=== PATIENT | female | born 1985 | race Two or more races ===

== ENCOUNTER 2018-08-23 18:09 | Outpatient (CLI) | payer OTHER ==
[2018-08-23 19:11] VITALS: BP 133/85; PULSE 111; RESP 16; TEMP 97.5
[2018-08-23 19:36] LABS: Basophils % (A) 0 %; Eosinophils # (A) 0.2 k/uL (0-0.7); Eosinophils % (A) 3 %; HCT 31.8 % (34.0-46.0); HGB 10.6 gm/dL (11.4-16.0); Hypochromasia Moderate; Lymphocytes # (A) 1.8 k/uL (1.0-4.8); Lymphocytes % (A) 21 %; MCH 24.6 pg (25.0-35.0); MCHC 33.3 g/dL (31.0-37.0); MCV 73.8 fL (80.0-100.0); Mean Platelet Volume 7.5; Microcytosis Slight; Monocytes # (A) 0.4 k/uL (0-1.0); Monocytes % (A) 4 %; Neutrophils % (A) 70 %; Platelet Count 240 k/uL (150-450); Poikilocytosis Slight; WBC 8.5 k/uL (3.8-10.6)
[2018-08-23 19:40] LABS: ALT 29 U/L (9-52); AST 21 U/L (14-36); Blood Urea Nitrogen 13 mg/dL (7-17); LDH 387 U/L (313-618); Uric Acid 4.5 mg/dL (3.7-7.4)
[2018-08-23 19:52] LABS: Appearance,Urine Clear (Clear); Bilirubin,Urine Negative (Negative); Blood,Urine Negative (Negative); Color,Urine Colorless; Glucose,Urine (UA) Negative (Negative); Ketones,Urine Negative (Negative); Leukocyte Esterase,Urine Negative (Negative); Nitrite,Urine Negative (Negative); PH, Urine 5.5 (5.0-8.0); Protein,Urine Negative (Negative); Specific Gravity,Urine 1.004 (1.001-1.035); Urobilinogen,Urine <2.0 mg/dL (<2.0)
--- NOTE | 2018-08-24 07:32 | P.MSEPDOC ---
Presenting Problems - Arrival Data Date of Arrival on Unit: 08/23/18 Time of Arrival on Unit: 18:48 Mode of Transport: Ambulatory - Complaint OB-Reason for Admission/Chief Complaint: PIH Medical History - Information : 1 Para: 0 Term: 0 : 0 Abortions: Spontaneous or Elective: 0 Number of Living Children: 0 - Gestational Age Gestational Age by YOVANY (wks/days): 35 Weeks and 0 Days - History Complications: GDM Review of Systems - Review of Systems Constitutional: No problems Breast: No problems ENT: No problems Cardiovascular: No problems Respiratory: No problems Gastrointestinal: No problems Genitourinary: No problems Musculoskeletal: No problems Neurological: No problems Skin: No problems Vital Signs - Temperature Temperature: 97.5 F Temperature Source: Oral - Pulse Right Sitting Pulse Rate: 111 Pulse Assessment Method: Automatic Cuff - Respirations Respiratory Rate: 16 Oxygen Delivery Method: Room Air - Blood Pressure Right Arm Blood Pressure: 133/85 Blood Pressure Mean: 101 Blood Pressure Source: Automatic Cuff Medical Screen Scoring (Pre) - Cervical Exam Dilation: Exam Deferred Effacement: Exam Deferred Membranes: Intact - Uterine Contractions Frequency: N/A - Maternal Vital Signs Maternal Temperature: N/A Maternal Blood Pressure: N/A Signs of Preeclampsia: N/A Maternal Respirations: N/A - Pain Assessment Pain Behavior: None Exhibited - Maternal Trauma Maternal Trauma: N/A - Assessment Baseline FHR: 145 Heart Rate - NICHD Category: Category I (Normal) = 0 NST: Reactive Position: N/A Station: N/A - Total Score Total Score (Pre): 0 - Level of Risk Level of Risk: Low (0-5) Physician Notification (Pre) - Physician Notified Physician Notified Date: 08/23/18 Physician Notified Time: 18:48 Physician/Practitioner Notifed:: Hortensia Rodriguez Order Received: Yes ([facility] labs) Medical Screen Scoring (Post) - Cervical Exam Dilation: Exam Deferred Effacement: Exam Deferred Membranes: Intact - Uterine Contractions Frequency: > 5 minutes apart = 1 - Maternal Vital Signs Maternal Temperature: N/A - Pain Assessment Pain Scale Used: Numeric (1 - 10) Pain Intensity: 0 - Maternal Trauma Maternal Trauma: N/A - Assessment Heart Rate: 145 Heart Rate - NICHD Category: Category I (Normal) = 0 - Total Score Total Score (Post): 1 - Post Treatment Level of Risk Post Treatment Level of Risk: Low (0-5) Physician Notification (Post) - Physician Notified Physician Notified Date: 08/23/18 Physician Notified Time: 20:17 Physician/Practitioner Notified:: Dr. Bazan Spoke With: Dr. Baazn New Order Received: Yes - Notification Comment Comment: Laurie Rodriges agree with MSE Disposition - Disposition OB Disposition: Discharge to home Discharge Date: 08/23/18 Discharge Time: 20:35 I agree with the RN Medical Screening Exam: Yes Risk & Benefit of care provided described in d/c instruction: Yes Diagnosis: ELEVATED BLOOD-PRESSURE READING, W/O DIAGNOSIS OF HTN
== END 2018-08-23 20:35 | disposition home or self-care (01) ==
LOC: FBPOP 18:09
PROVIDERS: ATTEND Obstetrics & Gynecology
DX: O99.89 Other specified diseases and conditions complicating pregnancy, childbirth and the puerperium (principal); R03.0 Elevated blood-pressure reading, without diagnosis of hypertension; Z3A.35 35 weeks gestation of pregnancy
CPT/HCPCS: 59025; 81003; 82565; 82570; 83615; 84156; 84450; 84460; 84520; 84550; 85025; 99215

== ENCOUNTER 2018-09-23 15:19 | Inpatient (IN) | payer OTHER ==
[2018-09-23] MEDS: LACTATED RINGERS 1,000 ML IV SCH ×2 (17:00→21:11)
[2018-09-23 17:31] LABS: Anisocytosis Slight; Basophils % (A) 1 %; Eosinophils # (A) 0.1 k/uL (0-0.7); Eosinophils % (A) 1 %; HCT 34.8 % (34.0-46.0); HGB 10.6 gm/dL (11.4-16.0); Hypochromasia Marked; Lymphocytes # (A) 1.5 k/uL (1.0-4.8); Lymphocytes % (A) 20 %; MCHC 30.5 g/dL (31.0-37.0); MCV 75.6 fL (80.0-100.0); Mean Platelet Volume 8.8; Microcytosis Slight; Monocytes # (A) 0.3 k/uL (0-1.0); Monocytes % (A) 5 %; Neutrophils # (A) 5.1 k/uL (1.3-7.7); Neutrophils % (A) 70 %; Platelet Count 215 k/uL (150-450); Poikilocytosis Slight; RBC 4.61 m/uL (3.80-5.40); RDW 16.6 % (11.5-15.5); WBC 7.3 k/uL (3.8-10.6)
[2018-09-23 17:44] LABS: ALT 42 U/L (9-52); AST 26 U/L (14-36); Blood Urea Nitrogen 12 mg/dL (7-17); LDH 461 U/L (313-618); Uric Acid 5.6 mg/dL (3.7-7.4)
--- NOTE | 2018-09-23 17:46 | P.HPOB ---
History of Present Illness H&P Date: 09/23/18 Chief Complaint: Contractions, hypertension This patient is a pleasant 32-year-old 1 para 0 female estimated date of confinement 09/27/2018 estimated gestational age 39-3/7 weeks who presented to labor and delivery with complaints of spotting after intercourse and some cramping. Patient's care is per Dr. Cerda is complicated by insulin- dependent gestational diabetes. This is been managed by Dr. Valentine. Patient is found to be 3 cm dilated here in labor and delivery on admission however her blood pressures elevated. Preeclampsia labs are pending. Patient denies of any other signs or symptoms. Review of Systems Genitourinary: Reports Menstruation: Reports amenorrhea Past Medical History Additional Past Medical History / Comment(s): Gestational diabetes, A2. History of Any Multi-Drug Resistant Organisms: None Reported Past Surgical History: Cholecystectomy Past Anesthesia/Blood Transfusion Reactions: No Reported Reaction Past Psychological History: No Psychological Hx Reported Smoking Status: Never smoker Past Alcohol Use History: None Reported Past Drug Use History: None Reported Medications and Allergies Home Medications Medication Instructions Recorded Confirmed Type INSULIN LISPRO (humaLOG) [humaLOG] 20 units SQ TID 08/23/18 09/23/18 History Insulin NPH Human Isophane 14 units SQ DAILY 08/23/18 09/23/18 History [humuLIN N] Pnv No.95/Ferrous Fum/Folic AC 1 each PO DAILY 09/23/18 09/23/18 History [ Multivitamin Tablet] Allergies Allergy/AdvReac Type Severity Reaction Status Date / Time No Known Allergies Allergy Verified 09/23/18 15:35 Exam Intake and Output 09/23/18 09/23/18 09/23/18 06:59 14:59 22:59 Other: Weight 74.117 kg - OBG Physical Exam Abdomen: bowel sounds normal, no diffuse tenderness, no bruit present, no guarding noted, no hepatomegaly, no splenomegaly, no mass Vulva: both: normal Vagina: normal moisture, no discharge Cervix: no lesion (Cervix is 4 cm 90% effaced -2 station), no discharge Uterus: enlarged Results Result Diagrams: 09/23/18 16:53 Abnormal Lab Results - Last 24 Hours (Table) 09/23/18 Range/Units 16:53 Hgb 10.6 L (11.4-16.0) gm/dL MCV 75.6 L (80.0-100.0) fL MCH 23.0 L (25.0-35.0) pg MCHC 30.5 L (31.0-37.0) g/dL RDW 16.6 H (11.5-15.5) % Assessment and Plan Assessment: This is a pleasant 32-year-old 1 para 0 female 39-3/7 weeks gestation with insulin-dependent gestational diabetes with good control, most likely early labor, and gestational hypertension. Patient has been evaluated by Dr. Cerda and myself and plan is to proceed with induction of labor. This plan was discussed with the patient and her and they wished to proceed. (1) 39 weeks gestation of Current Visit: Yes Status: Acute Code(s): Z3A.39 - 39 WEEKS GESTATION OF SNOMED Code(s): 66033664 (2) Gestational diabetes Current Visit: Yes Status: Acute Code(s): O24.419 - GESTATIONAL DIABETES MELLITUS IN , UNSP CONTROL SNOMED Code(s): 56732934 (3) Gestational hypertension Current Visit: Yes Status: Acute Code(s): O13.9 - GESTATIONAL HTN W/O SIGNIFICANT PROTEINURIA, UNSP TRIMESTER SNOMED Code(s): 704663117
[2018-09-23 17:53] LABS: Glucose,Whole Blood 75 mg/dL (75-99)
[2018-09-23] MEDS ORDERED: CARBOPROST TROMETHAMINE 250 MCG/ML 1 ML AMP IM PRN (17:53)
[2018-09-23] MEDS ORDERED: LIDOCAINE 0.5% (PF) 5 MG/ML (50 ML SDV) SQ PRN (17:53)
[2018-09-23] MEDS ORDERED: METHYLERGONOVINE 0.2 MG/ML 1 ML AMP IM PRN (17:53)
[2018-09-23] MEDS ORDERED: TERBUTALINE 1 MG/ML VIAL SQ PRN (17:53)
[2018-09-23] MEDS ORDERED: OXYTOCIN 10 UNIT/ML 1 ML VIAL IM PRN (17:53)
[2018-09-23 17:59] LABS: Appearance,Urine Clear (Clear); Bacteria,Urine Rare /hpf; Bilirubin,Urine Negative (Negative); Blood,Urine Small (Negative); Color,Urine Light Yellow; Glucose,Urine (UA) Negative (Negative); Ketones,Urine Negative (Negative); Leukocyte Esterase,Urine Negative (Negative); Mucus,Urine Rare /hpf; Nitrite,Urine Negative (Negative); PH, Urine 5.5 (5.0-8.0); Protein,Urine Negative (Negative); RBC,Urine 8 /hpf (0-5); Specific Gravity,Urine 1.012 (1.001-1.035); Squamous Epithelial Cell,Urine 5 /hpf (0-4); Urobilinogen,Urine <2.0 mg/dL (<2.0); WBC,Urine 2 /hpf (0-5)
[2018-09-23] MEDS ORDERED: OXYTOCIN 30 UNITS/500 ML NS 30 UNIT in SALINE 1 500ML.BAG IV SCH (18:00)
[2018-09-23 18:28] VITALS: BMI 33.0
[2018-09-23 19:34] LABS: Glucose,Whole Blood 70 mg/dL (75-99)
[2018-09-23] MEDS ORDERED: ROPIVACAINE 5MG/ML 20ML VIAL ONE (20:24)
[2018-09-23] MEDS ORDERED: fentaNYL (PF) 50 MCG/ML 5 ML AMP ONE (20:24)
[2018-09-23] MEDS ORDERED: SODIUM CHLORIDE 0.9% 100 ML BAG ONE (20:24)
[2018-09-23 21:05] LABS: Glucose,Whole Blood 73 mg/dL (75-99)
[2018-09-23 22:58] LABS: Glucose,Whole Blood 75 mg/dL (75-99)
[2018-09-23] MEDS ORDERED: CITRIC ACID-SODIUM CITRATE 15 ML CUP PO ONE (23:16)
[2018-09-23] MEDS ORDERED: ceFAZolin IN SWFI 2 GM/20 ML SYRINGE IVP ONE (23:16)
[2018-09-23] MEDS ORDERED: OXYTOCIN 10 UNIT/ML 1 ML VIAL ONE (23:36)
[2018-09-23] MEDS ORDERED: KETOROLAC 30 MG/ML 1 ML VIAL ONE (23:36)
[2018-09-23] MEDS ORDERED: LACTATED RINGERS 1,000 ML BAG IV ONE (23:36)
[2018-09-23] MEDS ORDERED: ONDANSETRON 4 MG/2 ML VIAL ONE (23:36)
[2018-09-23] MEDS ORDERED: MORPHINE SULFATE (PF) 0.3 MG/0.3 ML SYR ONE (23:36)
--- NOTE | 2018-09-24 00:19 | P.OP ---
Date of Procedure: 09/23/18 Preoperative Diagnosis: 1. at 39 weeks and 3 days 2. Arrest of dilation 3. Category 3 heart tones, remote for delivery 4. Gestational hypertension 5. Gestational diabetes A2 Postoperative Diagnosis: 1. at 39 weeks and 3 days 2. Arrest of dilation 3. Category 3 heart tones, remote for delivery 4. Gestational hypertension 5. Gestational diabetes A2 Procedure(s) Performed: Primary low transverse Anesthesia: epidural Surgeon: Cary Cerda Sales Operations #1: Yuval Miller Estimated Blood Loss (ml): 500 IV fluids (ml): 700 Urine output (ml): 200 Pathology: other (Placenta) Condition: stable Disposition: floor Indications for Procedure: 32-year-old presented to triage at 39 weeks and 3 days complaining of some vaginal bleeding. She was found to be shahram and 3 cm dilated, 70% effaced, -2 station. Her blood pressure was also elevated up to 140s over 90s. Considering she is over 39 weeks and she now has gestational hypertension with gestational diabetes A2 I decided to keep her for induction of labor. Amniotomy was performed by Dr. Miller when she was 4 cm dilated. Pitocin was also started. When she was uncomfortable she did get an epidural. Despite adequate contractions for several hours the patient did not dilate past 5 cm. Then the heart tones started to get minimal variability and late decelerations. The decision was made for section due to the category 3 heart tones. Operative Findings: Viable female, Apgars 9, 9, weight 6 lbs. 1 oz. (2750gm) Description of Procedure: Patient was taken to the operating room where spinal anesthesia was found be adequate. She was prepped and draped in normal sterile fashion in dorsal supine position with a leftward tilt. Pfannenstiel skin incision was made the scalpel and carried through to the underlying layer of fascia with the scalpel. Fascia was incised in midline and carried bilaterally with the De scissors. The sup erior aspect of the fascial incision was grasped with [place] clamps elevated and the underlying rectus muscles dissected off with the De's. Attention was then turned to inferior aspect of same incision which in a similar fashion was grasped tented up and the underlying rectus muscles dissected off with the De's. The rectus muscles were the midline and the peritoneum was identified tented up and entered sharply with the scalpel. The incision was extended superiorly and inferiorly with good visualization of the bladder. The bladder blade was inserted and the vesicouterine peritoneum was incised the [place] then carried bilaterally and bladder flap created digitally. A low transverse incision was then made on the uterus with the scalpel. This was carried bilaterally and digital manner. 's head delivered atraumatically, nose and mouth bulb suctioned, cord clamped and cut, handed off to waiting nurses. Apgars 9,9, weight 6 lbs. 1oz. Placenta delivered manually, intact with three-vessel cord. The uterus is exteriorized and cleared of all clots and debris. The uterine incision was closed with 0 Vicryl in a running locked fashion. Second layer of the same sutures used in imbricating fashion to obtain excellent hemostasis. Bladder flap was then reapproximated using 2-0 Vicryl in a running fashion. Both ovaries and tubes appeared normal. The u terus was placed back into the abdomen. The peritoneum was reapproximated using 2-0 Vicryl in a running fashion. The fascia was reapproximated using 0 Vicryl in a running fashion. The subcutaneous tissues closed with 3-0 Vicryl running fashion. The skin was closed ashleigh. Patient tolerated the procedure well, sponge and instrument counts were correct times 2 and she was taken to the recovery room in stable condition.
[2018-09-24] MEDS ORDERED: ACETAMINOPHEN TAB 325 MG TAB PO PRN (00:20)
[2018-09-24] MEDS ORDERED: METOCLOPRAMIDE 5 MG/ML 2 ML VIAL IVP PRN (00:20)
[2018-09-24] MEDS ORDERED: ONDANSETRON 4 MG/2 ML VIAL IVP PRN (00:20)
[2018-09-24] MEDS ORDERED: LANOLIN CREAM 5 GM TUBE TOPICAL PRN (00:20)
[2018-09-24] MEDS ORDERED: diphenhydrAMINE 25 MG CAP PO PRN (00:20)
[2018-09-24] MEDS ORDERED: diphenhydrAMINE 50 MG/ML 1 ML VIAL IVP PRN ×2 (00:20)
[2018-09-24] MEDS ORDERED: NALOXONE 0.4 MG/ML 1 ML VIAL IV PRN (00:20)
[2018-09-24] MEDS ORDERED: ZOLPIDEM 5 MG TAB PO PRN (00:20)
[2018-09-24] MEDS ORDERED: HYDROcodone/APAP 7.5-325MG 1 EACH TAB PO PRN (00:20)
[2018-09-24] MEDS ORDERED: diphenhydrAMINE 50 MG CAP PO PRN (00:20)
[2018-09-24] MEDS ORDERED: KETOROLAC 30 MG/ML 1 ML VIAL IVP PRN (00:20)
[2018-09-24] MEDS ORDERED: OXYTOCIN 20 UNITS/1000 ML NS 1,000 ML IV SCH (00:30)
--- NOTE | 2018-09-24 08:51 | P.PNOBGPC ---
Subjective - Subjective Principal diagnosis: S/P 1*LTCS POD #1 Interval history: Pt seen and examined. Denies N/V, F/C, CP, SOB, calf pain. Patient reports: Reports appetite normal, Reports voiding normally, Reports pain well controlled, Reports ambulating normally [place]: doing well Objective - Vital Signs Latest vital signs: Vital Signs Temp Pulse Resp BP Pulse Ox 09/24/18 06:07 152/91 09/24/18 06:00 98.9 F 112 H 16 154/102 98 09/24/18 02:20 98.1 F 106 H 16 154/97 100 09/24/18 01:50 91 16 150/79 100 09/24/18 01:20 98.3 F 98 16 159/96 100 09/24/18 01:05 96 16 144/91 100 09/24/18 00:50 99 16 144/82 100 09/24/18 00:34 106 H 18 152/85 99 09/24/18 00:20 97.7 F 114 H 18 197/79 98 09/23/18 18:18 98.1 F 92 18 137/90 09/23/18 18:06 98.1 F 92 18 137/90 09/23/18 16:42 90 18 144/91 Intake and Output 09/23/18 09/24/18 09/24/18 22:59 06:59 14:59 Intake Total 1000 Output Total 200 Balance 1000 -200 Intake: IV 1000 Lactated Ringers 1,000 ml 1000 @ 125 mls/hr IV .[facility] Rx#:[id number] Output: Urine 200 Other: Voiding Method Indwelling Catheter # Voids 1 Weight 74.117 kg - Exam Lungs: bilateral: normal Chest: Normal S1, Normal S2 Extremities: Present: normal Abdomen: Present: normal appearance, soft. Absent: distention, tenderness Incision: Present: normal, dry, intact Uterus: Present: normal, firm - Labs Labs: Abnormal Lab Results - Last 24 Hours (Table) 09/23/18 09/23/18 09/23/18 Range/Units 16:53 17:01 19:06 Hgb 10.6 L (11.4-16.0) gm/dL MCV 75.6 L (80.0-100.0) fL MCH 23.0 L (25.0-35.0) pg MCHC 30.5 L (31.0-37.0) g/dL RDW 16.6 H (11.5-15.5) % POC Glucose (mg/dL) 70 L (75-99) mg/dL Urine Blood Small H (Negative) Urine RBC 8 H (0-5) /hpf Ur Squamous Epith Cells 5 H (0-4) /hpf Urine Bacteria Rare H (None) /hpf Urine Mucus Rare H (None) /hpf 09/23/18 Range/Units 21:04 Hgb (11.4-16.0) gm/dL MCV (80.0-100.0) fL MCH (25.0-35.0) pg MCHC (31.0-37.0) g/dL RDW (11.5-15.5) % POC Glucose (mg/dL) 73 L (75-99) mg/dL Urine Blood (Negative) Urine RBC (0-5) /hpf Ur Squamous Epith Cells (0-4) /hpf Urine Bacteria (None) /hpf Urine Mucus (None) /hpf Assessment and Plan (1) Status post primary low transverse section Current Visit: Yes Status: Acute Code(s): Z98.891 - HISTORY OF UTERINE SCAR FROM PREVIOUS SURGERY SNOMED Code(s): 745380156 (2) Gestational hypertension Current Visit: Yes Status: Acute Code(s): O13.9 - GESTATIONAL HTN W/O SIGNIFICANT PROTEINURIA, UNSP TRIMESTER SNOMED Code(s): 967625292 Plan: 1. BPs have ranged from 129-150/80-100. I will cont to monitor and treat if needed. 2. increase ambulation 3. reg diet with flatus
[2018-09-24 09:21] LABS: Glucose,Whole Blood 111 mg/dL (75-99)
[2018-09-24 12:10] LABS: Hemoglobin A1C 6.5 % (4.0-6.0)
[2018-09-24] MEDS: SENNOSIDES-DOCUSATE SODIUM 1 EACH TAB PO SCH ×2 (21:40→21:41)
[2018-09-24] MEDS: LACTATED RINGERS 1,000 ML IV SCH (21:40)
--- NOTE | 2018-09-25 06:43 | P.PNOBGPC ---
Subjective - Subjective Principal diagnosis: Status post primary section postoperative day #2 Interval history: Patient is doing okay. She is still a little sore but her pain medication does help. She has been passing flatus but no bowel movement yet. Lochia is decreasing. She is breast-feeding. Patient reports: Reports appetite normal, Reports voiding normally, Reports pain well controlled, Reports ambulating normally : doing well, other (On a bili blanket) Objective - Vital Signs Latest vital signs: Vital Signs Temp Pulse Pulse Resp BP Pulse Ox 09/25/18 00:00 98 F 115 H 15 123/80 09/24/18 20:00 98 F 98 15 130/60 09/24/18 16:00 98.2 F 102 H 16 150/85 09/24/18 12:00 98.3 F 93 16 140/93 09/24/18 08:00 98.4 F 100 16 129/81 99 Intake and Output 09/24/18 09/24/18 09/25/18 14:59 22:59 06:59 Output Total 408 071 5266 Balance -850 -700 -1000 Output: Urine 096 167 6966 Other: # Voids 1 1 - Exam Abdomen: Present: normal appearance, soft (Positive bowel sounds 4). Absent: distention, tenderness Incision: Present: normal, dry, intact. Absent: erythematous Uterus: Present: normal, firm. Absent: tenderness - Labs Labs: Abnormal Lab Results - Last 24 Hours (Table) 09/23/18 09/24/18 Range/Units 16:53 09:00 POC Glucose (mg/dL) 111 H (75-99) mg/dL Hemoglobin A1c 6.5 H (4.0-6.0) % Assessment and Plan (1) Status post primary low transverse section Current Visit: Yes Status: Acute Code(s): Z98.891 - HISTORY OF UTERINE SCAR FROM PREVIOUS SURGERY SNOMED Code(s): 408417151 Plan: Continue with postoperative care. Patient encouraged to ambulate.
[2018-09-25 06:53] LABS: Anisocytosis Slight; Basophils % (A) 0 %; Eosinophils # (A) 0.2 k/uL (0-0.7); Eosinophils % (A) 2 %; HCT 30.7 % (34.0-46.0); HGB 9.2 gm/dL (11.4-16.0); Hypochromasia Marked; Lymphocytes # (A) 1.4 k/uL (1.0-4.8); Lymphocytes % (A) 12 %; MCH 22.3 pg (25.0-35.0); MCV 74.2 fL (80.0-100.0); Mean Platelet Volume 7.2; Microcytosis Slight; Monocytes # (A) 0.5 k/uL (0-1.0); Monocytes % (A) 4 %; Neutrophils # (A) 9.5 k/uL (1.3-7.7); Neutrophils % (A) 80 %; Platelet Count 226 k/uL (150-450); Poikilocytosis Slight; RBC 4.14 m/uL (3.80-5.40); RDW 16.7 % (11.5-15.5)
[2018-09-25] MEDS: SENNOSIDES-DOCUSATE SODIUM 1 EACH TAB PO SCH ×3 (14:59→19:30)
[2018-09-25] MEDS: IBUPROFEN 600 MG TAB PO PRN (17:23)
--- NOTE | 2018-09-26 05:09 | P.PNOBGPC ---
Subjective - Subjective Principal diagnosis: Status post primary section postoperative day #3 Interval history: Patient is doing okay. She is passing flatus but no bowel movement yet. Pain is better controlled today. She is working at breast-feeding. Baby is still on a bili blanket. Patient reports: Reports appetite normal, Reports voiding normally, Reports pain well controlled, Reports ambulating normally [place]: doing well Objective - Vital Signs Latest vital signs: Vital Signs Temp Pulse Resp BP Pulse Ox 09/26/18 00:00 98.2 F 86 18 143/62 98 09/25/18 16:00 98.1 F 105 H 14 138/82 09/25/18 08:00 97.2 F L 115 H 16 136/84 - Exam Extremities: Present: normal. Absent: tenderness Abdomen: Present: normal appearance, soft (Positive bowel sounds 4). Absent: distention, tenderness Incision: Present: normal, dry, intact. Absent: erythematous Uterus: Present: normal, firm. Absent: tenderness - Labs Labs: Abnormal Lab Results - Last 24 Hours (Table) 09/25/18 Range/Units 06:28 WBC 12.0 H (3.8-10.6) k/uL Hgb 9.2 L (11.4-16.0) gm/dL Hct 30.7 L (34.0-46.0) % MCV 74.2 L (80.0-100.0) fL MCH 22.3 L (25.0-35.0) pg MCHC 30.0 L (31.0-37.0) g/dL RDW 16.7 H (11.5-15.5) % Neutrophils # 9.5 H (1.3-7.7) k/uL Assessment and Plan Assessment: Status post primary section postoperative day #3 (1) Status post primary low transverse section Current Visit: Yes Status: Acute Code(s): Z98.891 - HISTORY OF UTERINE SCAR FROM PREVIOUS SURGERY SNOMED Code(s): 099673927 Plan: We'll continue with postoperative and care. Anticipate discharge home tomorrow.
[2018-09-26] MEDS: SENNOSIDES-DOCUSATE SODIUM 1 EACH TAB PO SCH (22:52)
[2018-09-26] MEDS: IBUPROFEN 600 MG TAB PO PRN ×2 (23:43)
--- NOTE | 2018-09-27 08:52 | P.DS ---
Providers Date of admission: 09/23/18 16:48 Expected date of discharge: 09/27/18 Attending physician: Cary Cerda Primary care physician: Stated None - Discharge Diagnosis(es) (1) Status post primary low transverse section Current Visit: Yes Status: Acute (2) Gestational hypertension Current Visit: Yes Status: Acute Hospital Course: Patient presented for induction of labor for gestational hypertension and diabetes. She underwent a primary low transverse . Her post operative course was uncomplicated. She will discharged home postoperative day #3 in stable condition to follow-up with me in one week. Plan - Discharge Summary New Discharge Prescriptions: New Ibuprofen [Motrin] 600 mg PO Q6HR PRN #30 tab PRN Reason: Mild Pain Or Fever >= 100.5 HYDROcodone/APAP 7.5-325MG [[place] 7.5-325] 1 each PO Q6H PRN #12 tab PRN Reason: Severe Pain No Action INSULIN LISPRO (humaLOG) [humaLOG] 20 units SQ TID Insulin NPH Human Isophane [humuLIN N] 14 units SQ DAILY Pnv No.95/Ferrous Fum/Folic AC [ Multivitamin Tablet] 1 each PO DAILY Discharge Medication List INSULIN LISPRO (humaLOG) [humaLOG] 20 units SQ TID 08/23/18 [History] Insulin NPH Human Isophane [humuLIN N] 14 units SQ DAILY 08/23/18 [History] Pnv No.95/Ferrous Fum/Folic AC [ Multivitamin Tablet] 1 each PO DAILY 09/23/18 [History] HYDROcodone/APAP 7.5-325MG [[place] 7.5-325] 1 each PO Q6H PRN #12 tab 09/27/18 [Rx] Ibuprofen [Motrin] 600 mg PO Q6HR PRN #30 tab 09/27/18 [Rx] Follow up Appointment(s)/Referral(s): Cary Cerda DO [Doctor of Osteopathic Medicine] - 1 Week Discharge Disposition: HOME SELF-CARE
[2018-09-27 09:47] VITALS: BP 142/84; PULSE 111; RESP 16; TEMP 98.2
[2018-09-27] MEDS: SENNOSIDES-DOCUSATE SODIUM 1 EACH TAB PO SCH (09:48)
== END 2018-09-27 15:05 | disposition home or self-care (01) | DRG 788 ==
LOC: FBPOP 15:19 → 4FBP 16:48
PROVIDERS: ADMIT Obstetrics & Gynecology; ATTEND Obstetrics & Gynecology
PROC: 00HU33Z Insertion of Infusion Device into Spinal Canal, Percutaneous Approach (ICD-10-PCS; 2018-09-23)
PROC: 3E0R3BZ Introduction of Anesthetic Agent into Spinal Canal, Percutaneous Approach (ICD-10-PCS; 2018-09-23)
PROC: 10D00Z1 Extraction of Products of Conception, Low, Open Approach (ICD-10-PCS; principal; 2018-09-23 23:52)
DX: O13.4 Gestational [pregnancy-induced] hypertension without significant proteinuria, complicating childbirth (principal); O24.424 Gestational diabetes mellitus in childbirth, insulin controlled; N93.0 Postcoital and contact bleeding; O62.0 Primary inadequate contractions; Z37.0 Single live birth; Z3A.39 39 weeks gestation of pregnancy; Z79.4 Long term (current) use of insulin; Z79.899 Other long term (current) drug therapy; Z90.49 Acquired absence of other specified parts of digestive tract
CPT/HCPCS: 59025; 81001; 82565; 82570; 83036; 83615; 84156; 84450; 84460; 84520; 84550; 85025; 99215